=== PATIENT | female | born 2005 | race Two or more races ===

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

== ENCOUNTER 2025-01-12 09:44 | Inpatient (IN) | payer OTHER ==
[2025-01-12] VITALS (10 sets, daily range): BP systolic 129–156; BP diastolic 70–92
[~2025-01-12] VITALS: Ht 154.9 cm; Wt 73.9 kg
[2025-01-12] MEDS ORDERED: CHLORHEXIDINE GLUCONATE 120 ML BOTTLE TOP ONE ×2 (10:00→11:30)
[2025-01-12] MEDS ORDERED: ERYTHROMYCIN BASE OPHT 1GM EACH TUBE OP ONE (10:00)
[2025-01-12] MEDS ORDERED: OXYTOCIN 20 UNITS/1000ML RL PIGGYBAG IV ONE (10:00)
[2025-01-12] MEDS ORDERED: RINGERS SOLUTION,LACTATED 1,000 ML IV SCH (10:00)
[2025-01-12 10:34] LABS: INR 0.97
[2025-01-12 10:59] LABS: BASO % 0.4 % (0.1-1.2); EOS # 0.10 (0.04-0.54); EOS % 1.3 % (0.7-7.0); LYMPH # 1.67 (1.18-3.74); LYMPH % 22.3 % (19.3-53.1); MONO # 0.40 (0.24-0.82); MONO % 5.3 % (4.7-12.5); NEUT # 5.24 (1.56-6.13); NEUT % 70.0 % (34.0-71.1); RED CELL DISTRIBUTION WIDTH 14.8 % (11.6-14.4)
[2025-01-12] MEDS ORDERED: PRENATAL TABLE1 EAC1 PO (11:04)
[2025-01-12] MEDS ORDERED: VALTREX1000 MG PO (11:05)
[2025-01-12 11:17] LABS: ALT/SGPT 25.0 U/L (12-78); AST/SGOT 29.0 U/L (15-37); BILIRUBIN TOTAL 0.46 mg/dL (0.3-1.2); BUN CREA RATIO 15.0 (7.0-25.0); CREATININE SERUM 0.72 mg/dL (0.55-1.02); GFR 104.35; GLOBULINA 3.5 G/DL (2.4-3.5); GLUCOSE FASTING 92.0 mg/dL (65-100); OSMOLALITY SERUM 282.0 MOSM/KG (275-295)
[2025-01-12] MEDS ORDERED: OXYTOCIN 1,000 ML IV SCH (11:30)
[2025-01-12] MEDS ORDERED: ACETAMINOPHEN 500 MG GEL..CAP PO PRN (11:30)
[2025-01-13 00:11] VITALS: BP 130/80
[2025-01-13 08:22] VITALS: BP 127/79
[2025-01-13] MEDS ORDERED: PNV,CALCIUM 72/IRON/FOLIC ACID 1 TAB TABLET PO SCH (09:00)
[2025-01-13 16:00] VITALS: BP 130/81
[2025-01-14 00:26] VITALS: BP 1135/78
[2025-01-14 04:00] VITALS: BP 130/75
[2025-01-14 08:28] VITALS: BP 142/80; BP 153/98
== END 2025-01-14 16:44 | disposition home or self-care (01) | DRG 776 ==
LOC: LDR 09:44 → OB/GYN 09:44
PROVIDERS: ADMIT Obstetrics & Gynecology; ATTEND Obstetrics & Gynecology
DX: Z39.0 Encounter for care and examination of mother immediately after delivery (principal)